=== PATIENT | male | born 1965 | race Caucasian/White ===

== ENCOUNTER 2018-12-20 00:01 | Emergency (ER) | payer OTHER ==
[~2018-12-20] VITALS: Ht 175.3 cm; Wt 86.2 kg
[2018-12-20] MEDS ORDERED: CEFAZOLIN SOD 500 MG VIAL IM SCH (00:30)
--- NOTE | 2018-12-20 00:30 | NUR ---
pt to radiology
[2018-12-20] MEDS ORDERED: KETOROLAC TROME10 MG PO (00:33)
[2018-12-20] MEDS ORDERED: KEFLEX500 MG PO (00:33)
--- NOTE | 2018-12-20 00:40 | NUR ---
pt back from radiology
--- NOTE | 2018-12-20 00:54 | Diagnostic Imaging Report ---
Exam: 3 views of the right elbow Indication: Fell on glass table Comparison: None Impression: Large laceration at the dorsal lateral aspect of the elbow. No associated radiopaque foreign body. No underlying fracture. Signed by: Dr. Giselle Slaughter M.D. on 12/20/2018 12:51 AM
--- NOTE | 2018-12-20 01:45 | NUR ---
PT RECIEVED 23 TOTAL SUTURES - 5 DEEP, 18 SUPERFICIAL
[2018-12-20 01:46] VITALS: BP 152/94
== END 2018-12-20 02:00 | disposition home or self-care (01) ==
LOC: FSED 00:01
DX: S51.011A Laceration without foreign body of right elbow, initial encounter (principal); W01.110A Fall on same level from slipping, tripping and stumbling with subsequent striking against sharp glass, initial encounter; Y92.008 Other place in unspecified non-institutional (private) residence as the place of occurrence of the external cause; I10 Essential (primary) hypertension
CPT/HCPCS: 99283